=== PATIENT | female | born 1995 | race Caucasian/White ===

== ENCOUNTER 2019-04-24 03:38 | Emergency (ER) | payer BC ==
[2019-04-24] MEDS ORDERED: Sodium Chloride 0.9% 1,000 ML IV ONE (03:50)
[2019-04-24 03:51] VITALS: BP 113/69; PULSE 125
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
[2019-04-24 04:18] LABS: ANION GAP 11.7; CHLORIDE,CL 109 mmol/L (101-111); SODIUM,NA 142 mmol/L (135-145)
== END 2019-04-24 06:08 | disposition home or self-care (01) ==
LOC: DL.ED 03:38
DX: Z02.83 Encounter for blood-alcohol and blood-drug test (principal); Z88.0 Allergy status to penicillin
CPT/HCPCS: 36415; 80053; 80305; 80320; 81003; 81025; 85025; 96360; 96361; 99281; J7030; G0480